=== PATIENT | female | born 1990 | race Caucasian/White ===

== ENCOUNTER 2016-12-01 17:54 | Emergency (ER) | payer SELFPAY ==
[~2016-12-01] VITALS: Ht 152.4 cm; Wt 91.6 kg
[2016-12-01 18:03] VITALS: BP 127/67
--- NOTE | 2016-12-01 18:25 | PHYS DOC ---
Past Medical History Past Medical History: IBS Past Surgical History: Other Additional Past Surgical Histo: Oral surgery Alcohol Use: Rarely Drug Use: None Adult General Chief Complaint Chief Complaint: LACERATION/AVULSION HPI HPI Patient is a 26 year old female presents emergency department stating that she had broken a glass at home approximately one week ago. Patient states that she was going barefooted in the house when they were moving today and slipped on a piece of shattered of the glass. She states that she did have one sliver removed out of her foot. She denies her immunizations being up-to-date. Patient denies any drainage or discoloration around the foot area. Review of Systems Review of Systems Constitutional: Denies fever or chills [] Eyes: Denies change in visual acuity, redness, or eye pain [] HENT: Denies nasal congestion or sore throat [] Respiratory: Denies cough or shortness of breath [] Cardiovascular: No additional information not addressed in HPI [] GI: Denies abdominal pain, nausea, vomiting, bloody stools or diarrhea [] : Denies dysuria or hematuria [] Musculoskeletal: Denies back pain or joint pain [] Integument: Denies rash or skin lesions. States she stepped on a chard of glass Neurologic: Denies headache, focal weakness or sensory changes [] Endocrine: Denies polyuria or polydipsia [] Current Medications Current Medications Current Medications Medications (Trade) Dose Ordered Sig/Moni Start Time Stop Time Status Last Admin Dose Admin Diphtheria/ Tetanus/Acell Pertussis (Boostrix) 0.5 ml ONCE ONCE 12/01/16 18:30 12/01/16 18:31 DC 12/01/16 18:39 0.5 ML Allergies Allergies Allergies Coded Allergies Type Severity Reaction Last Updated Verified doxycycline Allergy Intermediate 12/01/16 Yes Physical Exam Physical Exam Constitutional: Well developed, well nourished, no acute distress, non-toxic appearance. [] HENT: Normocephalic, atraumatic, bilateral external ears normal, oropharynx moist, no oral exudates, nose normal. [] Eyes: PERRLA, EOMI, conjunctiva normal, no discharge. [] Neck: Normal range of motion, no tenderness, supple, no stridor. [] Cardiovascular:Heart rate regular rhythm Lungs & Thorax: No respiratory distress noted Skin: Warm, dry, no erythema, no rash. Bottom of bilateral of right foot appears to have some drainage or discharge noted from bloody secretions. No tenderness noted on the foot with no sharpness noted. Back: No tenderness,[] Extremities: No tenderness, no cyanosis, no clubbing, ROM intact, no edema. [] Neurologic: Alert and oriented X 3, normal motor function, normal sensory function, no focal deficits noted. [] Psychologic: Affect normal, judgement normal, mood normal. [] Current Patient Data Vital Signs Vital Signs Date Time Temp Pulse Resp B/P (MAP) Pulse Ox O2 Delivery O2 Flow Rate FiO2 12/01/16 18:03 98.2 72 16 97 Room Air 98.2 EKG EKG [] Radiology/Procedures Radiology/Procedures [] Course & Med Decision Making Course & Med Decision Making Pertinent Labs and Imaging studies reviewed. (See chart for details) X-ray was negative for any foreign objects noted in the foot per Dr. Falcon. Patient's foot was soaked here in the emergency department. Patient was provided with an updated tetanus immunization. Patient will be discharged home with recommendations for Tylenol or ibuprofen for pain and discomfort. She was also instructed to use warm Epsom salt soaks 4-5 times a day for 20 minutes at a time. Recommended following up with her primary care physician as needed. Patient agrees with discharge instructions treatment regimens and follow-up recommendations signs and symptoms to return back to emergency department as been provided. [] Dragon Disclaimer Dragon Disclaimer This electronic medical record was generated, in whole or in part, using a voice recognition dictation system. Departure Departure Impression: Primary Impression: Puncture wound of right foot Disposition: 01 HOME, SELF-CARE Condition: STABLE Patient Instructions: Puncture Wound, [id number] Additional Instructions: Keep the area clean and dry. Clean the site with soap and water twice a day and apply antibiotic ointment to the area. Warm Epsom salt soaks 4-5 times a day for 20 minutes at a time. Tylenol or ibuprofen for pain and discomfort. Follow-up to primary care physician in the next 3-5 days. Return back to emergency prior signs symptoms of become worse JOYCE MONTERROSO APRN Dec 01, 2016 18:25
[2016-12-01] MEDS ORDERED: DIPHTH,PERTUSS(ACELL),TET TOX 0.5 ML DISP.SYRIN. VAX IM ONE (18:30)
--- NOTE | 2016-12-02 08:47 | RAD ---
Right FOOT AP LATERAL OBLIQUE Clinical Indication: stepped on glass Comparison: None. Findings: There is no acute fracture or dislocation. The bony alignment is normal. Mineralization is normal. No bony erosion. Tiny calcaneal enthesophytes. No radiopaque foreign body is seen. There is no soft tissue abnormality. IMPRESSION: 1. No acute fracture. 2. No radiopaque foreign body is identified.
== END 2016-12-01 19:19 | disposition home or self-care (01) ==
LOC: ER 17:54
DX: S91.331A Puncture wound without foreign body, right foot, initial encounter (principal); K58.9 Irritable bowel syndrome, unspecified; Z88.1 Allergy status to other antibiotic agents; W01.110A Fall on same level from slipping, tripping and stumbling with subsequent striking against sharp glass, initial encounter; Y93.89 Activity, other specified; Y99.8 Other external cause status; Y92.89 Other specified places as the place of occurrence of the external cause
CPT/HCPCS: 73630; 90471; 90715; 99284-25